=== PATIENT | male | born 1955 ===

== ENCOUNTER 2022-06-24 09:02 | Inpatient (IN) | payer SELFPAY ==
[2022-06-24] MEDS ORDERED: NOREPINEPHRINE 8 MG/250 ML-D5W 250 ML ONE (09:04)
[2022-06-24 09:51] LABS: Hemoglobin 16.5 g/dL (14.0-18.0); Mean Corpuscular HGB CONC 32.2 g/dL (32.0-36.0); Mean Corpuscular Hemoglobin 37.3 pg (27.0-31.0); Mean Platelet Volume 7.7 fL (7.4-10.4); Platelet Count 136 10x3/uL (130-400); RBC Distribution Width 11.5 % (11.5-14.5); Red Blood Cell (RBC) Count 4.43 mill/uL (4.70-6.10); White Blood Cell (WBC) Count 19.7 10x3/uL (4.8-10.8)
[2022-06-24] MEDS ORDERED: Fentanyl 100 MCG/2 ML VIAL ONE (09:53)
[2022-06-24 09:58] LABS: ALT (SGPT) 108 U/L (8-55); AST (SGOT) 327 U/L (5-34); Albumin 2.9 g/dL (3.4-4.8); Alkaline Phosphatase 87 U/L (40-110); Anion Gap 34 mmol/L (10-20); BUN (Urea Nitrogen) 17 mg/dL (8.4-25.7); Bilirubin, Total 0.4 mg/dL (0.2-1.2); Calc. Creatinine Clearance 0 mL/min (70-130); Chloride 106 mmol/L (98-107); Estimated GFR 50; Globulin 3.1 g/dL (2.4-3.5); Glucose 325 mg/dL (80-115); Potassium 4.4 mmol/L (3.5-5.1); Sodium 144 mmol/L (136-145)
[2022-06-24 10:00] LABS: INR-International Normal Ratio 1.6; Prothrombin Time 19.4 sec (12.0-14.7)
[2022-06-24 10:02] LABS: PTT 77.6 sec (22.9-36.1)
[2022-06-24 10:03] LABS: Carbon Dioxide 8 mmol/L (23-31)
[2022-06-24 10:03] LABS: Analyzer IN Cardio ER; Base Excess (BEa) -18.5 mEq/L (-2.0 to +3.0); CO2 Tension 48.7 mmHg (35.0-45.0); Calcium, Ionized (arterial) 1.08 mmol/L (1.12-1.30); Carboxyhemoglobin (COHb) 0.8 gm% (0.0-3.0); Hemoglobin (Hb) 18.2 g/dL (14.0-18.0); O2 Tension (PaO2), arterial 74.7 mmHg (> 80.0); Potassium - ABG Lab 4.58 mmol/L (3.70-5.30)
[2022-06-24 10:07] LABS: pH, Arterial 7.03 (7.35-7.45)
[2022-06-24 10:08] LABS: ALV-art Gradient 577.425 mmHg (0-20); Actual Bicarbonate (HCO3a) 12.6 mEq/L (22-28); Puncture Site RBA
[2022-06-24 10:08] LABS: SARS-CoV-2 NAA Rapid Test Not Detected (NotDetected)
[2022-06-24 10:15] LABS: Band 17 % (5-11); Eosinophils 1 % (0-10); Lymphocytes 30 % (21-51); MDiff Complete? YES; Macrocytosis MODERATE=16-30 cells (100X) (0-5/hpf); Monocytes 2 % (0-10); Neutrophil 48 % (42-75); Platelet Morphology Comment Appears Adequate; Polychromasia SLIGHT = 2-3 cells (100X) (0-2/hpf); Reactive Lymphocytes 2 % (0-10)
[2022-06-24 10:20] LABS: Bilirubin Negative (Negative); Blood, Urine 1+ (Negative); Clarity Turbid (Clear); Glucose, Urine (Dipstick) Normal (Negative); Ketone, Urine Negative (Negative); Leukocyte 250 Leu/uL (Negative); Nitrite Negative (Negative); Protein, Urine (Dipstick) 30 mg/dL (Neg-Trace); Specific Gravity, Urine 1.015 (1.002-1.036); Urobilinogen Normal mg/dL (Less than 2); pH, Urine 5.5 (5.0-9.0)
[2022-06-24 10:21] LABS: Bacteria/HPF None Seen HPF (None Seen); Sperm/HPF Rare HPF (None Seen); Squamous Epithelial 0-3 HPF (0-3)
[2022-06-24 10:26] LABS: CKMB 163.7 ng/mL (0-6.6)
[2022-06-24] MEDS ORDERED: Aspirin 300 MG Suppository ONE (10:50)
[2022-06-24] MEDS ORDERED: Heparin 25,000 units/D5W 500 ML ONE (10:59)
[2022-06-24] MEDS ORDERED: Heparin 10,000 UNITS/ 10 ML VIAL ONE (10:59)
[2022-06-24] MEDS ORDERED: NOREPINEPHRINE 8 MG/250 ML-D5W 250 ML IVPB PRN (11:15)
[2022-06-24] MEDS ORDERED: Nitroglycerin 0.4 MG TAB (25 Tab Bottle) SL PRN ×2 (11:15→13:32)
[2022-06-24] MEDS ORDERED: Senokot S 8.6-50 MG TAB PO PRN (11:15)
[2022-06-24] MEDS ORDERED: Bisacodyl 5 MG TAB PO PRN (11:15)
[2022-06-24] MEDS ORDERED: Bisacodyl 10 MG SUPP PR PRN (11:15)
[2022-06-24] MEDS ORDERED: Dextrose 5% in Water 1,000 ML IV PRN (11:25)
[2022-06-24] MEDS ORDERED: HumaLOG 300 UNITS/3 ML VIAL SC PRN ×3 (11:25→14:14)
[2022-06-24] MEDS ORDERED: Dextrose 50% Abboject 50 ML SYRINGE SLOW IVP PRN (11:25)
[2022-06-24] MEDS ORDERED: Sodium Bicarbonate 100 MEQ in Dextrose 5% in Water 1,000 ML IV SCH (11:30)
[2022-06-24 11:58] LABS: Hemoglobin A1c 5.7 % (4.0-6.0)
[2022-06-24] MEDS ORDERED: EPINEPHrine 1 MG/ML AMP ONE (11:58)
[2022-06-24] MEDS ORDERED: Norepinephrine 4 MG/4 ML VIAL ONE (12:03)
[2022-06-24] MEDS ORDERED: Acetaminophen 650 MG Suppository PR PRN (12:10)
[2022-06-24] MEDS ORDERED: Iopamidol 370 76% 100 ML VIAL ONE (12:21)
[2022-06-24] MEDS ORDERED: Hydrocortisone Sod Succ/PF 100 mg/2 ml Vial IVP SCH ×2 (12:30→18:00)
[2022-06-24] MEDS ORDERED: Cefepime 2 GM in Sodium Chloride 0.9% 100 ML IVPB SCH (13:00)
[2022-06-24] MEDS ORDERED: Acetaminophen/Codeine 30-300mg Tablet PO PRN ×2 (13:32)
[2022-06-24] MEDS ORDERED: Sodium Chloride 0.9% 200 ML IV PRN (13:32)
[2022-06-24] MEDS ORDERED: Sodium Chloride 0.9% 500 ML IV SCH (14:00)
[2022-06-24] MEDS ORDERED: Heparin 10,000 UNITS/1 ML VIAL 50,000 UNITS in Dextrose 5% in Water 1,000 ML FS SCH (14:00)
[2022-06-24 14:11] LABS: Base Excess -19.6 mEq/L (-2.0 to +3.0); Calcium, Ionized (venous) 0.91 mmol/L (1.16-1.32); Chloride (VBG) 105 mmol/L (98-106); Potassium (VBG) 3.98 mmol/L (3.70-5.30); Sodium 137.8 mmol/L (133-146)
[2022-06-24] MEDS ORDERED: Sodium Bicarb 50 MEQ/50 ML VIAL ONE (14:11)
[2022-06-24 14:12] LABS: Actual Bicarbonate (HCO3v) 14 mEq/L (22-28); pH (venous) 6.91 (7.32-7.43)
[2022-06-24] MEDS ORDERED: Insulin Glargine 30 UNITS/0.3 ML VIAL SC SCH (14:15)
[2022-06-24] MEDS ORDERED: Sodium Bicarbonate 150 MEQ in Dextrose 5% in Water 1,000 ML IV SCH (14:15)
[2022-06-24 14:25] VITALS: BP 73/39
[2022-06-24] MEDS ORDERED: Sodium Bicarb 50 MEQ/50 ML VIAL IVP SCH ×2 (14:30→17:30)
[2022-06-24 14:36] LABS: Hemoglobin 13.6 g/dL (14.0-18.0); Mean Corpuscular HGB CONC 32.5 g/dL (32.0-36.0); Mean Corpuscular Hemoglobin 37.8 pg (27.0-31.0); Platelet Count 137 10x3/uL (130-400); RBC Distribution Width 11.6 % (11.5-14.5); White Blood Cell (WBC) Count 12.4 10x3/uL (4.8-10.8)
[2022-06-24] MEDS: Sodium Chloride 0.9% 1,000 ML IV SCH ×2 (14:38→22:07)
[2022-06-24 14:47] LABS: Troponin I 145.616 ng/mL (< 0.028)
[2022-06-24] MEDS ORDERED: VANCOMYCIN 1.75 GM/500 ML BAG 1.75 GM in Premix Bag 1 BAG IVPB SCH (15:00)
[2022-06-24 15:11] LABS: Band 18 % (5-11); Lymphocytes 12 % (21-51); MDiff Complete? YES; Macrocytosis MODERATE=16-30 cells (100X) (0-5/hpf); Myelocyte 1 % (0-0); Neutrophil 68 % (42-75); Platelet Morphology Comment Appears Adequate; Polychromasia SLIGHT = 2-3 cells (100X) (0-2/hpf); Reactive Lymphocytes 1 % (0-10)
[2022-06-24 15:25] VITALS: BMI 30.4
[2022-06-24 17:06] LABS: ALT (SGPT) 155 U/L (8-55); AST (SGOT) 686 U/L (5-34); Albumin 2.1 g/dL (3.4-4.8); Alkaline Phosphatase 209 U/L (40-110); Anion Gap 26 mmol/L (10-20); BUN (Urea Nitrogen) 20 mg/dL (8.4-25.7); Bilirubin, Total 0.5 mg/dL (0.2-1.2); Calc. Creatinine Clearance 42 mL/min (70-130); Calcium 5.5 mg/dL (7.8-10.44); Carbon Dioxide 21 mmol/L (23-31); Chloride 92 mmol/L (98-107); Estimated GFR 33; Globulin 2.3 g/dL (2.4-3.5); Glucose 947 mg/dL (80-115); Potassium 3.8 mmol/L (3.5-5.1); Protein, Total 4.4 g/dL (5.8-8.1); Sodium 135 mmol/L (136-145)
[2022-06-24] MEDS ORDERED: Norepinephrine 16 MG in Sodium Chloride 0.9% 250 ML 234 ML IVPB PRN (17:15)
[2022-06-24] MEDS ORDERED: EPINEPHrine 4 MG in Sodium Chloride 0.9% 250 ML 250 ML IVP SCH (17:15)
[2022-06-24] MEDS ORDERED: Calcium Chloride 1 GM/10 ML Abboject SYRINGE IVP SCH (17:30)
[2022-06-24] MEDS ORDERED: HUMULIN R 100 UNITS in Sodium Chloride 0.9% 100 ML IVPB SCH (17:30)
[2022-06-24] MEDS ORDERED: Morphine 4 MG/ML VIAL SLOW IVP PRN (17:47)
[2022-06-24] MEDS ORDERED: Lorazepam 2 MG/ML VIAL SLOW IVP PRN (17:51)
[2022-06-24 17:54] LABS: Hemoglobin 14.5 g/dL (14.0-18.0); Mean Corpuscular HGB CONC 33.9 g/dL (32.0-36.0); Mean Corpuscular Hemoglobin 38.2 pg (27.0-31.0); Mean Platelet Volume 7.3 fL (7.4-10.4); Platelet Count 143 10x3/uL (130-400); RBC Distribution Width 11.6 % (11.5-14.5); Red Blood Cell (RBC) Count 3.81 mill/uL (4.70-6.10); White Blood Cell (WBC) Count 15.6 10x3/uL (4.8-10.8)
[2022-06-24 18:40] LABS: ALT (SGPT) 178 U/L (8-55); AST (SGOT) 859 U/L (5-34); Albumin 2.1 g/dL (3.4-4.8); Alkaline Phosphatase 189 U/L (40-110); Anion Gap 23 mmol/L (10-20); BUN (Urea Nitrogen) 27 mg/dL (8.4-25.7); Band 15 % (5-11); Bilirubin, Total 0.7 mg/dL (0.2-1.2); Calc. Creatinine Clearance 41 mL/min (70-130); Calcium 8.7 mg/dL (7.8-10.44); Carbon Dioxide 17 mmol/L (23-31); Chloride 110 mmol/L (98-107); Estimated GFR 31; Globulin 2.6 g/dL (2.4-3.5); Glucose 328 mg/dL (80-115); Lymphocytes 10 % (21-51); MDiff Complete? YES; Macrocytosis MODERATE=16-30 cells (100X) (0-5/hpf); Magnesium 2.5 mg/dL (1.6-2.6); Monocytes 3 % (0-10); Neutrophil 70 % (42-75); Platelet Morphology Comment Appears Adequate; Polychromasia SLIGHT = 2-3 cells (100X) (0-2/hpf); Potassium 3.6 mmol/L (3.5-5.1); Protein, Total 4.7 g/dL (5.8-8.1); Reactive Lymphocytes 2 % (0-10); Sodium 146 mmol/L (136-145)
[2022-06-24 20:04] LABS: Glucose 260 mg/dL (80-115)
[2022-06-24] MEDS ORDERED: Vancomycin HCl 1.5 GM in Sodium Chloride 0.9% 250 ML 300 ML IVPB SCH (21:00)
[2022-06-24] MEDS ORDERED: Famotidine 20 MG TAB PO SCH (21:00)
[2022-06-24 22:05] LABS: Actual Bicarbonate (HCO3v) 21 mEq/L (22-28); Base Excess -5.3 mEq/L (-2.0 to +3.0); Calcium, Ionized (venous) 1.02 mmol/L (1.16-1.32); Chloride (VBG) 108 mmol/L (98-106); Hemoglobin (Hb) 14.9 g/dL (12.6-17.4); Potassium (VBG) 3.39 mmol/L (3.70-5.30); Sodium 145.7 mmol/L (133-146); pH (venous) 7.29 (7.32-7.43)
[2022-06-24 22:21] LABS: Hemoglobin 14.6 g/dL (14.0-18.0); Mean Corpuscular HGB CONC 32.8 g/dL (32.0-36.0); Mean Corpuscular Hemoglobin 37.5 pg (27.0-31.0); Platelet Count 140 10x3/uL (130-400); RBC Distribution Width 11.8 % (11.5-14.5); Red Blood Cell (RBC) Count 3.89 mill/uL (4.70-6.10); White Blood Cell (WBC) Count 14.7 10x3/uL (4.8-10.8)
[2022-06-24 22:32] LABS: ALT (SGPT) 238 U/L (8-55); AST (SGOT) 1251 U/L (5-34); Albumin 2.3 g/dL (3.4-4.8); Alkaline Phosphatase 130 U/L (40-110); Anion Gap 20 mmol/L (10-20); BUN (Urea Nitrogen) 33 mg/dL (8.4-25.7); Bilirubin, Total 1.4 mg/dL (0.2-1.2); Calc. Creatinine Clearance 33 mL/min (70-130); Calcium 7.6 mg/dL (7.8-10.44); Carbon Dioxide 19 mmol/L (23-31); Chloride 111 mmol/L (98-107); Estimated GFR 24; Globulin 2.7 g/dL (2.4-3.5); Glucose 213 mg/dL (80-115); Potassium 3.4 mmol/L (3.5-5.1); Sodium 147 mmol/L (136-145)
[2022-06-24 22:37] LABS: Band 29 % (5-11); Lymphocytes 9 % (21-51); MDiff Complete? YES; Macrocytosis MODERATE=16-30 cells (100X) (0-5/hpf); Monocytes 3 % (0-10); Myelocyte 1 % (0-0); Neutrophil 58 % (42-75)
[2022-06-25 00:07] VITALS: TEMP 101.6
[2022-06-25] MEDS ORDERED: Aspirin Chewable 81 MG TAB PO SCH (09:00)
[2022-06-25] MEDS ORDERED: VANCOMYCIN 1.25 GM/250 ML BAG 1.25 GM in Premix Bag 1 BAG IVPB SCH (15:00)
== END 2022-06-25 00:45 | disposition expired | DRG 215 ==
LOC: ERS 09:02 → CCU 10:55
PROVIDERS: ADMIT Hospitalist; ATTEND Hospitalist
PROC: 02HA3RZ Insertion of Short-term External Heart Assist System into Heart, Percutaneous Approach (ICD-10-PCS; principal; 2022-06-24)
PROC: 5A0221D Assistance with Cardiac Output using Impeller Pump, Continuous (ICD-10-PCS; 2022-06-24)
PROC: 4A133R1 Monitoring of Arterial Saturation, Peripheral, Percutaneous Approach (ICD-10-PCS; 2022-06-24)
PROC: 4A023N8 Measurement of Cardiac Sampling and Pressure, Bilateral, Percutaneous Approach (ICD-10-PCS; 2022-06-24)
PROC: B2151ZZ Fluoroscopy of Left Heart using Low Osmolar Contrast (ICD-10-PCS; 2022-06-24)
PROC: B2111ZZ Fluoroscopy of Multiple Coronary Arteries using Low Osmolar Contrast (ICD-10-PCS; 2022-06-24)
PROC: 5A1935Z Respiratory Ventilation, Less than 24 Consecutive Hours (ICD-10-PCS; 2022-06-24)
PROC: 3E033XZ Introduction of Vasopressor into Peripheral Vein, Percutaneous Approach (ICD-10-PCS; 2022-06-24)
DX: I21.4 Non-ST elevation (NSTEMI) myocardial infarction (principal); G93.41 Metabolic encephalopathy; J96.01 Acute respiratory failure with hypoxia; K72.00 Acute and subacute hepatic failure without coma; I47.21 Torsades de pointes; N17.9 Acute kidney failure, unspecified; R57.0 Cardiogenic shock; Z20.822 Contact with and (suspected) exposure to COVID-19; Z66 Do not resuscitate; I25.10 Atherosclerotic heart disease of native coronary artery without angina pectoris; I46.2 Cardiac arrest due to underlying cardiac condition; I44.7 Left bundle-branch block, unspecified; Z87.891 Personal history of nicotine dependence
CPT/HCPCS: 33990; 36415; 36416; 36600; 71045; 80053; 81003; 81015; 82010; 82553; 82805; 83036; 83735; 84443; 84484; 85025; 85347; 85610; 85730; 86850; 86900; 86901; 87040; 87077; 87186; 93005; 93306; 93460; 94002; 94760; C1751; C1769; C1887; C1894; J0171; J0692; J1644; J1720; J1815; J3010; J3370; J3490; J7050; J7070; Q9967; U0002